=== PATIENT | female | born 1965 | race African-American/Black ===

== ENCOUNTER 2023-12-02 19:34 | Emergency (ER) | payer OTHER ==
[~2023-12-02] VITALS: Ht 167.6 cm; Wt 104.3 kg
[2023-12-02 19:55] VITALS: TEMP 98.6
[2023-12-02] MEDS: LEVOFLOXACIN 500 MG TAB PO ONE (20:41)
[2023-12-02] MEDS: ONDANSETRON HCL INJ 2MG/ML 2ML 2 MG/ML VIAL IV ONE (20:42)
[2023-12-02] MEDS: KETOROLAC TROMETHAMINE 30 MG/ML VIAL IV ONE (20:42)
[2023-12-02] MEDS: METRONIDAZOLE 500MG/NS 100ML 100 ML IV ONE (20:42)
[2023-12-02] MEDS: LACTATED RINGER'S 1,000 ML INJ ONE (20:43)
[2023-12-02] MEDS ORDERED: ONDANSETRON ODT4 MG PO (22:16)
[2023-12-02] MEDS ORDERED: METRONIDAZOLE500 MG PO (22:16)
[2023-12-02] MEDS ORDERED: ACETAMINOPHEN-1 EAC4 PO (22:16)
[2023-12-02] MEDS ORDERED: LEVOFLOXACIN500 MG PO (22:16)
[2023-12-02 22:25] VITALS: PULSE 90; RESP 18; O2SAT 98
== END 2023-12-02 22:25 | disposition home or self-care (01) ==
LOC: FSED 19:38
DX: R10.32 Left lower quadrant pain (principal); K57.32 Diverticulitis of large intestine without perforation or abscess without bleeding; D72.829 Elevated white blood cell count, unspecified; I10 Essential (primary) hypertension; K21.9 Gastro-esophageal reflux disease without esophagitis
CPT/HCPCS: 74176; 80053; 81003; 85025; 99284; J1885; J2405; J7121